=== PATIENT | female | born 1950 | race Caucasian/White ===

== ENCOUNTER 2019-07-16 13:28 | Outpatient (CLI) | payer MEDICARE, SELFPAY ==
--- NOTE | ~2019-07-16 | XR_ITS ---
EXAMINATION: XR abdomen/kub 1V INDICATION: Left-sided kidney stone TECHNIQUE: Supine views of the abdomen were obtained on 2 radiographs. COMPARISON: None FINDINGS: An 8 mm calcification projects over the left abdomen at the level of the left L3 transverse process. There are phleboliths of the pelvis. Surgical staple lines are noted in the right upper erendira drant and in the pelvis. Endovascular stents are present in the right common and external iliac arter ies. There are changes of bilateral total hip arthroplasty. IMPRESSION: 1. 8mm calcification of the left abdomen, within the left proximal ureter or left kidney lower pole. Reviewed, dictated and finalized at location A. LEAD DEVELOPER IMPRESSION: 1. 8mm calcification of the left abdomen, within the left proximal ureter or le ft kidney lower pole.
== END 2019-07-16 13:29 | disposition home or self-care (01) ==
LOC: ANHIMG 13:35
PROVIDERS: Visit Provider Urology
DX: N20.1 Calculus of ureter (principal)
CPT/HCPCS: 74018

== ENCOUNTER 2019-08-14 07:48 | Outpatient (CLI) | payer MEDICARE, SELFPAY ==
--- NOTE | ~2019-08-14 | XR_ITS ---
XR abdomen/kub 1V 08/14/2019 08:05 Indication: Right renal mass. Left flank pain. Procedure: KUB Comparison: 07/16/2019 Findings: There are left renal stones, largest measuring 3.1 cm greatest dimension. There are surgica l changes in the right mid abdomen. There is a right iliac vascular stent. Bowel gas pattern nonobstr uctive with moderate colonic fecal loading. There are bilateral hip arthroplasties. Impression: 1: Left nephrolithiasis. Reviewed, dictated and finalized at location A. Impression: 1: Left nephrolithiasis.
--- NOTE | ~2019-08-14 | CT_ITS ---
EXAMINATION: CT abdomen pelvis wo/w con DATE: 08/14/2019 08:27 INDICATION: Right renal mass TECHNIQUE: Computed tomography (CT) of the abdomen and pelvis was performed without and with 100 cc O mnipaque 350 intravenous contrast. The dose-length product was 1033.50 mGy-cm. Automated exposure con trol and iterative reconstruction technique were employed. COMPARISON: KUB dated 08/14/2019 FINDINGS: There is an 8 mm nonobstructing right renal stone. There is right middle lobe atelectasis/s carring. There is dependent atelectasis. No significant pleural or pericardial effusion. Small hiatal hernia. Heart size normal. There is a 2.2 cm low-density left adrenal mass measuring -3 Hounsfield u nits precontrast, consistent with adenoma. There is an enhancing exophytic left renal mass measuring 1.8 cm, postcontrast images 58-61. This mas s measures 21 Hounsfield units precontrast and 46 Hounsfield units postcontrast. There are multiple a dditional hypodense masses of both kidneys, without significant enhancement, consistent with cysts. T he largest in the right kidney measures 3.1 cm. Some of these hypovascular masses are too small to ad equately characterize, although likely benign. There are multiple liver cysts. There are cholecystectomy clips. There are calcified granulomas in th e spleen. The pancreas is unremarkable. No right adrenal masses. Bowel pattern is nonobstructive. The re are bilateral hip arthroplasties limiting evaluation of the pelvis due to streak artifact. There a re surgical changes in the intra-abdominal wall, consistent with previous midline laparotomy. There i s extensive atherosclerosis of the aorta without aneurysm. 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 Moderate lumbar spondylosis, most advanced at L5-S1. There is bilateral neural foraminal narrowi ng at this level due to endplate and facet hypertrophy. IMPRESSION: 1. 1.8 cm hypovascular mass of the left kidney at the upper pole medially with enhancement, suspiciou s for renal cell carcinoma. Consider correlation with MRI. 2: Hypodense left adrenal mass measuring 2.2 cm, compatible with benign adenoma. 3: Nonobstructing left nephrolithiasis. Reviewed, dictated and finalized at location A. IMPRESSION: 1. 1.8 cm hypovascular mass of the left kidney at the upper pole medially with enhancement, suspicious for renal cell carcinoma. Consider correlation with MRI . 2: Hypodense left adrenal mass measuring 2.2 cm, compatible with benign adenoma . 3: Nonobstructing left nephrolithiasis.
[2019-08-14 08:16] LABS: Estimated Glomerular Filt Rate > 60
== END 2019-08-14 07:49 | disposition home or self-care (01) ==
LOC: ANHIMG 07:54
PROVIDERS: Visit Provider Urology
DX: N28.89 Other specified disorders of kidney and ureter (principal); E27.9 Disorder of adrenal gland, unspecified; N20.0 Calculus of kidney
CPT/HCPCS: 36415; 74018; 74178; Q9967

== ENCOUNTER 2019-08-21 06:35 | Outpatient (CLI) | payer MEDICARE, SELFPAY ==
--- NOTE | ~2019-08-21 | MR_ITS ---
EXAMINATION: MR abdomen wo/w con INDICATION: Right renal mass TECHNIQUE: Coronal SSFSE ARC, WATER:coronal LAVA-FLEX, Coronal 2D FIESTA FatSat, Axial SSFSE BH ARC, Axial 3D DualEcho BH, Axial SSFSE-IR, Axial DWI b=500, Axial 2D FIESTA FatSat, pre and dynamic postco ntrast Axial LAVA ARC, postcontrast Coronal In and Opposed phase LAVA FLEX COMPARISON: CT, 08/14/2019 CONTRAST: Multihance, 14 cc FINDINGS: There is a trace right pleural effusion. The heart size is normal. Cysts of the liver measu re up to 1.7 cm in the right hepatic lobe. The spleen is unremarkable. The right adrenal gland is nor mal. There is a 2.2 cm adenoma of the left adrenal gland. There are multiple cystic lesions in the luis dy of the pancreas which measure up to 10 mm. There is no definite communication with the main pancre atic duct. Cysts of the right kidney measure up to 2.7 cm. There is a 1.3 cm T1 hyperintense, interme diate T2 signal intensity mass of the left kidney upper pole which corresponds to the CT finding in q uestion. The mass demonstrates no appreciable enhancement after contrast administration. There are no pathologically enlarged abdominal lymph nodes. A moderate volume of colonic stool is present. No dil ated loops of bowel are seen. IMPRESSION: 1. Proteinaceous cyst of the left kidney corresponding to the CT mass in question. 2. Left adrenal adenoma. Reviewed, dictated and finalized at location A. IMPRESSION: 1. Proteinaceous cyst of the left kidney corresponding to the CT mass in questi on. 2. Left adrenal adenoma.
[2019-08-21 07:52] LABS: Estimated Glomerular Filt Rate 55
== END 2019-08-21 06:36 | disposition home or self-care (01) ==
PROVIDERS: Visit Provider Nurse Practitioner Adult Health
DX: N28.89 Other specified disorders of kidney and ureter (principal); D35.02 Benign neoplasm of left adrenal gland
CPT/HCPCS: 36415; 74183; A9577

== ENCOUNTER 2019-12-06 13:33 | Outpatient (CLI) | payer MEDICARE, SELFPAY ==
--- NOTE | ~2019-12-06 | XR_ITS ---
EXAMINATION: XR abdomen/kub 1V INDICATION: Left-sided kidney stone TECHNIQUE: Supine views of the abdomen were obtained on 2 radiographs. COMPARISON: 08/14/2019 FINDINGS: There is a stable 8 mm stone in the left kidney lower pole. No stones are identified: The e xpected courses of the ureters or within the bladder. Pelvic phleboliths are noted. There are changes of bilateral total hip vertebroplasty as well as bowel anastomosis in the pelvis and right upper erendira drant. A right common iliac and external iliac artery endoluminal stent is noted. IMPRESSION: 1. Stable left nephrolithiasis. Reviewed, dictated and finalized at location A.
== END 2019-12-06 13:34 | disposition home or self-care (01) ==
LOC: ANHIMG 13:39
PROVIDERS: PCP Internal Medicine; Visit Provider Urology
DX: N20.0 Calculus of kidney (principal)
CPT/HCPCS: 74018

== ENCOUNTER 2019-12-07 21:58 | Emergency (ER) | payer MEDICARE, SELFPAY ==
[2019-12-07 22:01] VITALS: BP 192/105; PULSE 102; RESP 18; TEMP 37; O2SAT 96
--- NOTE | 2019-12-07 22:37 | ED.ALLEREA ---
HPI - Allergic Reaction General Chief complaint: Allergic Reaction Stated complaint: allergic reaction, back pain Time Seen by Provider: 12/07/19 22:12 Source: patient Mode of arrival: ambulatory Limitations: no limitations History of Present Illness HPI narrative: This patient is a 69 year old female with history of kidney stones, chronic UTIs, and chronic anticoagulation who presents for evaluation of UTI and allergic reaction. Patient states she has been dealing with a UTI since June. She was taking keflex daily until last week when her urologist increased her keflex to twice a day. She states she developed nausea and diarrhea after increasing keflex so she was changed to Macrobid. She took her first dose of macrobid tonight and 30 minutes later she developed itching. She spoke with someone construction grip for Dr. Dewitt and she was told to come to ER. She has intermittent left back pain and left abdominal pain for 2 days. She has been told she has kidney stone but she can't have it removed until she is able to stop aspirin. Related Data Allergies Allergy/AdvReac Type Severity Reaction Status Date / Time ciprofloxacin Allergy Itching Verified 12/07/19 22:06 nitrofurantoin Allergy Itching Verified 12/07/19 22:06 [From Macrobid] Sulfa (Sulfonamide Allergy Unknown Verified 12/07/19 22:06 Antibiotics) Review of Systems Review of Systems: All systems reviewed & are unremarkable except as noted in HPI and below Constitutional: Constitutional: Denies chills and Denies fever(s) Gastrointestinal: Gastrointestinal: Reports abdominal pain, Reports diarrhea, Denies nausea and Denies vomiting Genitourinary: Genitourinary: Denies hematuria, Denies nocturia, Denies dysuria and Denies urinary incontinence Musculoskeletal: Musculoskeletal: Reports back pain Integumentary/Breasts: Skin/Breast: Reports pruritus PMFSH Past Medical History Medical History (Updated 12/08/19 @ 00:16 by Kimberlyn Dao MD) DVT (deep venous thrombosis) Hypertension Kidney stones Pancreatitis Peripheral vascular disease Surgical History Surgical History (Updated 12/07/19 @ 22:39 by Kimberlyn Dao MD) H/O colectomy History of cholecystectomy Hx of appendectomy Social History Social History (Updated 12/07/19 @ 22:39 by Kimberlyn Dao MD) Smoking packs per day: 1 Smoking cigarettes per day: 20.0 Alcohol intake: never Substance use: never Gender identity (if verbalized by the patient): Female Exam Narrative: Exam Narrative: GENERAL: Well-appearing, well-nourished, and in no acute distress. HEAD: Normocephalic, atraumatic EYES: PERRLA and EOMI, conjunctiva clear without discharge THROAT:Mucous membranes moist, Oropharynx normal without erythema, exudate, peritonsillar swelling or fluctuance NECK: Supple, without lymphadenopathy or mass RESPIRATORY: No respiratory distress, Airway patent, Respirations non-labored, Clear to auscultation without rales, rhonchi or wheeze HEART: Regular rate and rhythm. No murmur heard. Normal peripheral pulses. ABDOMEN: Soft, nontender, nondistended, normal active bowel sounds. No masses. No rebound or guarding, No organomegaly. EXTREMITIES: No edema, normal strength with full range of motion. SKIN: Warm, dry, normal color without rash NEURO: Alert and oriented x3. CN 2-12 grossly intact. No focal deficits. PSYCH: Normal mood and affect. Course Reevaluation(s) Reevaluation #1: I discussed with patient labs are unremarkable. Her urine does not show infection so she will discontinue macrobid and follow up with Dr. Dewitt as out patient. Date: 12/08/19 Time: 00:14 Vital Signs Vital signs: Vital Signs Temperature 98.6 F 12/07/19 22:01 Pulse Rate 102 H 12/07/19 22:01 Respiratory Rate 18 12/07/19 22:01 Blood Pressure 192/105 H 12/07/19 22:01 Pulse Oximetry 96 12/07/19 22:01 Temperature 98.6 F 12/07/19 22:01 Pulse Rate 102 H 12/07/19 22
[2019-12-07 22:49] LABS: Basophils Absolute Auto 0.1 K/mm3 (0.0-0.1); Basophils Percent Auto 0.9 % (0.2-1.2); Eosinophils Absolute Auto 0.6 K/mm3 (0-0.3); Eosinophils Percent Auto 6.8 % (0-4.4); Hematocrit 43.3 % (37.0-47.0); Hemoglobin 14.4 g/dL (12.0-15.0); Immature Granulocyte Absolute 0.02 K/mm3 (0.00-0.031); Immature Granulocyte Percent A 0.2 % (0-0.5); Lymphocytes Absolute Auto 2.99 K/mm3 (0.9-3.2); Lymphocytes Percent Auto 37.2 % (18.3-44.2); Mean Corpuscular HGB Conc 33.3 g/dl (32-36); Mean Corpuscular Volume 93.1 fl (80-100); Mean Platelet Volume 11.1 fl (7.4-10.4); Monocytes Absolute Auto 0.7 K/mm3 (0.1-0.6); Monocytes Percent Auto 8.2 % (2.6-8.5); Neutrophils Absolute Auto 3.8 K/mm3 (1.3-6.7); Neutrophils Percent Auto 46.7 % (45.5-73.1); Platelet Count Result 320 k/mm3 (150-375); Red Blood Count 4.65 M/mm3 (4.2-5.4); Red Cell Distribution Width 17.1 % (11.5-14.5)
[2019-12-07 22:54] LABS: Add Urine Microscopic? YES; Appearance Urine Clear (Clear); Bilirubin Urine Negative (Negative); Blood Urine 2+ (Negative); Color Urine Yellow (Yellow); Glucose Urine UA Negative (Negative); Ketones Urine Negative (Negative); Leukocyte Esterase Ur Negative LEU/UL (Negative); Mucus Urine Rare /lpf; Nitrate Urine Negative (Negative); Protein Urine Negative (Negative); Specific Grav Ur 1.012 (1.001-1.035); Squamous Epithelial Cell Urine Few /hpf (Few); Urobilinogen Urine Negative mg/dL (<2.0); WBC Urine 0-3 /hpf
[2019-12-07 23:04] LABS: Alanine Aminotransferase 15 U/L (4-35); Albumin Level 4.6 g/dL (3.5-5.1); Alkaline Phosphatase 86 U/L (38-126); Aspartate Amino Transferase 20 U/L (14-36); Bilirubin,Total 0.2 mg/dL (0.2-1.3); Blood Urea Nitrogen 17 mg/dL (7-17); Calcium 9.3 mg/dL (8.4-10.2); Carbon Dioxide 21 mmol/L (22-30); Chloride 105 mmol/L (98-107); Estimated CRCL calculation 67 ml/min; Estimated Glomerular Filt Rate > 60; Glucose 113 mg/dL (65-105); Lactic Acid Reflex 1.3 mmol/L (0.7-2.1); Potassium 3.4 mmol/L (3.4-5.0); Sodium 139 mmol/L (137-145)
[2019-12-07] MEDS: SODIUM CHLORIDE 0.9% IV 100 ML 999 ML (23:12)
== END 2019-12-08 00:47 | disposition home or self-care (01) ==
PROVIDERS: Emergency Provider General Practice; PCP Internal Medicine
DX: R11.2 Nausea with vomiting, unspecified (principal); T36.1X5A Adverse effect of cephalosporins and other beta-lactam antibiotics, initial encounter; N39.0 Urinary tract infection, site not specified; I10 Essential (primary) hypertension; I73.9 Peripheral vascular disease, unspecified; Z87.442 Personal history of urinary calculi; Z86.718 Personal history of other venous thrombosis and embolism; Z90.49 Acquired absence of other specified parts of digestive tract; F17.210 Nicotine dependence, cigarettes, uncomplicated
CPT/HCPCS: 36415; 80053; 81001; 83605; 85025; 96365; 96375; 99284; J0131; J1200

== ENCOUNTER 2020-03-10 10:34 | Outpatient (CLI) | payer MEDICARE, SELFPAY ==
--- NOTE | ~2020-03-10 | MR_ITS ---
EXAMINATION: MR abdomen wo/w con INDICATION: Left kidney mass TECHNIQUE: Coronal SSFSE ARC, WATER:coronal LAVA-FLEX, Coronal 2D FIESTA FatSat, Axial SSFSE BH ARC, Axial 3D DualEcho BH, Axial SSFSE-IR, Axial DWI b=500, Axial 2D FIESTA FatSat, pre and dynamic postco ntrast Axial LAVA ARC, postcontrast Coronal In and Opposed phase LAVA FLEX COMPARISON: 08/21/2019 CONTRAST: Multihance, 14 cc FINDINGS: There is a 1.2 cm T1 hyperintense, T1 hypointense, nonenhancing mass of the left kidney upp er pole which is slightly decreased in size since the comparison examination. The mass previously dem onstrated an internal proteinaceous component and now is completely hemorrhagic. No suspicious kidney mass is identified. There are cysts of the right kidney which measure up to 2.7 cm. Cysts of the kvng er measure up to 1.7 cm in the right hepatic lobe. There is a 2.2 cm adenoma of the left adrenal glan d. The spleen and right adrenal gland are normal. The gallbladder is surgically absent. There are sta ble cystic lesions in the body of the pancreas which measure up to 10 mm and do not definitely commun icate with the main pancreatic duct. There are no pathologically enlarged abdominal lymph nodes. No d ilated loops of bowel are present. IMPRESSION: 1. Slight decrease in size of a left kidney cyst which is now predominantly hemorrhagic but without a bnormal enhancement. 2. Stable cystic lesions of the pancreas with differential as previously described. Follow-up MRI wit hout and with contrast in two years is recommended. Reviewed, dictated and finalized at location A. IMPRESSION: 1. Slight decrease in size of a left kidney cyst which is now predominantly hem orrhagic but without abnormal enhancement. 2. Stable cystic lesions of the pancreas with differential as previously descri bed. Follow-up MRI without and with contrast in two years is recommended.
[2020-03-10 11:20] LABS: Estimated Glomerular Filt Rate > 60
== END 2020-03-10 10:35 | disposition home or self-care (01) ==
PROVIDERS: PCP Internal Medicine; Visit Provider Urology
DX: N28.89 Other specified disorders of kidney and ureter (principal); N28.1 Cyst of kidney, acquired; K86.89 Other specified diseases of pancreas
CPT/HCPCS: 74183; A9577